=== PATIENT | male | born 1955 | race Caucasian/White ===

== ENCOUNTER 2023-11-01 09:11 | Emergency (ER) | payer OTHER, MEDICARE, SELFPAY ==
[2023-11-01 09:17] VITALS: BP 139/84
[2023-11-01 09:56] LABS: % Basophils 0.7 % (0-2); % Eosinophils 3.6 % (0-6); % Immature Granulocytes 0.5 % (0-0.5); % Lymphocytes 9.9 % (20.5-51.1); % Monocytes 8.4 % (1.7-9.3); % Neutrophils 76.9 % (42.2-75.2); Absolute Eosinophils 0.2 10^3/uL (0-0.7); Absolute Lymphocytes 0.6 10^3/uL (1.2-3.4); Absolute Monocytes 0.5 10^3/uL (0.1-0.6); Absolute Neutrophils 4.5 10^3/uL (1.4-6.5); Hemoglobin 13.8 g/dL (13.0-18.0); Mean Corp Hgb Conc. 32.9 g/dL (33.0-37.0); Mean Corpuscular Hgb 32.4 pg (27.0-31.0); Mean Corpuscular Volume 98.6 fL (80.0-94.0); Mean Platelet Volume 9.3 fL (7.4-10.4); Nucleated Red Blood Cells % 0 % (-); Platelet Count 141 10^3/uL (130-400); Red Blood Cell Count 4.26 10^6/uL (4.70-6.10); White Blood Cell Count 5.9 10^3/uL (4.8-10.8)
[2023-11-01 10:14] LABS: ALT (SGPT) 21 U/L (0-50); AST (SGOT) 29 U/L (17-59); Albumin 4.4 g/dl (3.5-5.0); Alkaline Phosphatase 82 U/L (38-126); Blood Urea Nitrogen 37 mg/dl (9-20); Calcium 8.5 mg/dl (8.4-10.2); Carbon Dioxide 30 mmol/L (22-30); Chloride 99 mmol/L (98-107); Glucose 105 mg/dl (70-99); Potassium 4.7 mmol/L (3.5-5.1); Sodium 136 mmol/L (135-145); Total Bilirubin 1.4 mg/dl (0.2-1.3); Total Protein 7.2 g/dl (6.3-8.2); eGFR > 60.00
[2023-11-01 10:19] LABS: NT-proBNP 198 pg/ml; Troponin I < 0.012 ng/ml
[2023-11-01 13:00] VITALS: BP 121/70
[2023-11-01] MEDS: DUONEB 3 ML INH (13:00)
--- NOTE | 2023-11-01 13:02 | ED.GENMED ---
History of Present Illness
General
Chief Complaint: Chest Pain
Time Seen by Provider: 11/01/23 12:28
Travel History
Have you had any contact with someone who has COVID-19?: No
Do you have any symptoms of coronavirus? Fever > 100 degrees, chills, cough, shortness of breath, sore throat, loss of taste or smell, muscle aches, or headache?: No
History of Present Illness
History of Present Illness:
68-year-old male with history of CHF, hypertension, and spinal stenosis presents to the emergency department for evaluation of shortness of breath and chest discomfort. He states he had a CT scan as an outpatient on October 21 at [facility] that
suggested potential pneumonia. He reports he has been wheezing and his albuterol inhaler is not helping. Denies any fevers or chills. He has no coughing or purulent sputum. He also notes worsening chronic back pain. Has never followed up with
the pain and artificial intelligence specialist as he was incarcerated for several years.
Past History
Past History
ED Past Medical History: COPD and HTN; Negative Hypercholesterolemia or NIDDM
ED Past Surgical History: Other (Gastric bypass)
Social History
Tobacco: Non-smoker
Alcohol: Occasional
Personal: Single (Significant other for 11 years)
Living: with family
Employment: Employed
Family History
Family History: Other (n/c)
Review of Systems
Review of Systems
Allergies reviewed?: Yes
All Other Systems: ROS reviewed and negative except as documented in HPI and ROS
Phy Exam
Physical Exam
Physical Exam:
GEN: Well appearing, NAD, WDWN
HEENT: Oral mucosa moist, no scleral icterus
Cardiac: Regular rate and rhythm, no murmurs
Lung: No respiratory distress, no tachypnea. Diffuse expiratory wheezing throughout all lung elkins
MSK: No gross deformity or injuries
Skin: Good color, no pallor or jaundice, no rashes
Neuro: AO x3, moves all extremities freely
Psych: Calm, cooperative
Scores
Heart Score for Chest Pain Patients
STEMI patient?: No
History: Slightly or Non-Suspicious
ECG: Normal
Age: >/= 65 years
Risk Factors: 1 or 2 Risk Factors
Troponin: </= Normal Limit
Heart Score for Chest Pain Patients: 3
Heart Score Risk: 2.5% MACE over next 6 weeks
Course
Orders/Labs/Results
Orders:
Orders
11/01/23 09:14
ECG [Electrocardiogram (*1)] Urgent
Reason for Study: Chest Pain
EKG- Treatment ONCE
11/01/23 09:45
Complete Blood Count/With Diff Urgent
Comprehensive Metabolic Panel Urgent
NT-proBNP Urgent
Troponin I Urgent
11/01/23 12:49
Ipratropium/Albuterol Sulfate [Duoneb] 3 ml INH R NOW STA
11/01/23 12:50
CR Chest - 2 Views Urgent
Comment:
Reason For Exam: SOB
Abnormal Lab Results
11/01/23
09:45
RBC 4.26 L 10^6/uL
(4.70-6.10)
MCV 98.6 H fL
(80.0-94.0)
MCH 32.4 H pg
(27.0-31.0)
MCHC 32.9 L g/dL
(33.0-37.0)
Absolute Lymphs (auto) 0.6 L 10^3/uL
(1.2-3.4)
Neutrophils % 76.9 H %
(42.2-75.2)
Lymphocytes % 9.9 L %
(20.5-51.1)
BUN 37 H mg/dl
(9-20)
Glucose 105 H mg/dl
(70-99)
Total Bilirubin 1.4 H mg/dl
(0.2-1.3)
11/01/23 09:45
11/01/23 09:45
Vital Signs
Initial and Last Documented VS:
Initial Vital Signs
Temp Pulse Resp BP Pulse Ox
97.7 F 69 16 139/84 99
11/01/23 09:17 11/01/23 09:17 11/01/23 09:17 11/01/23 09:17 11/01/23 09:17
Last Documented Vital Signs
Temp Pulse Resp BP Pulse Ox
97.7 F 65 19 121/70 99
11/01/23 09:17 11/01/23 13:30 11/01/23 13:30 11/01/23 13:00 11/01/23 09:17
MDM/Problems Addressed
MDM/Problems Addressed:
Patient's back pain is due to his previously diagnosed lumbar spinal stenosis and morbid obesity. He does have mild symptoms of a COPD exacerbation at this time, chest x-ray obtained today shows no evidence for infiltrate. I did review the
findings from his CT scan 10 days ago and it is not immediately clear that these findings represent infectious etiology. Will place him on a pulse dose of prednisone for the COPD exacerbation, this may provide some benefit to his lumbar spinal
stenosis pain. Outpatient pain and spine follow-up recommended
*Critical Care Note
Total Time (30-74mins, 75-104mins- exclusive of procedures): Not Applicable
ED Attending Note
-
Portions of this chart may have been created with voice recognition software.� Occasional wrong word or��sound alike� substitutions may have occurred due to the inherent limitations of voice recognition software.
Discharge Plan
Departure
Patient Disposition: Home (Routine Discharge)
Date of Disposition: 11/01/23
Time of Disposition: 14:14
Patient with high blood pressure during this ER visit?: No
Discharge Problem:
Acute exacerbation of chronic obstructive pulmonary disease, Spinal stenosis
Instructions: Exacerbation of COPD (DC)
Prescriptions:
New
prednisone 20 mg tablet
40 mg PO DAILY 7 Days Qty: 14 0RF
oxycodone 5 mg tablet
5 mg PO Q8H PRN (Reason: Pain) Qty: 8 0RF
methocarbamol 750 mg tablet
750 - 1,500 mg PO HS Qty: 14 0RF
No Action
albuterol sulfate 2.5 MG/0.5 ML solution for nebulization
2.5 mg inhalation R QIDPRN PRN (Reason: SOB)
thiamine HCl (vitamin B1) 100 MG tablet
100 mg PO DAILY
levothyroxine 150 MCG tablet
150 mcg PO DAILY
folic acid 1 MG tablet
1 mg PO DAILY
multivitamin with folic acid [Tab-A-Gisell] 1 TABLET tablet
1 tab PO DAILY
Referrals:
Emmanuel Neal DO [Non-Admitting Privileges] -
Joanna Brooke CRNP [Family Provider] -
Interventions
Interventions:
*Risk Screen - Suicide Last Done: 11/01/23 12:43
*Neglect/Abuse Screening Last Done: 11/01/23 12:43
ED- Fall Risk Assessment Last Done: 11/01/23 12:43
*ED COVID-19 Vaccine History Last Done: 11/01/23 09:17
*Nursing Disposition Last Done: 11/01/23 14:23
ED- Cardiac Assessment Last Done: 11/01/23 12:42
Discharge Date and Time
Discharge Date/Time: 11/01/23 14:25
Print Language: VIET[place]ESE
== END 2023-11-01 14:25 | disposition home or self-care (01) ==
LOC: EMR 09:11
PROVIDERS: EMERGENCY PHYSICIAN Emergency Medicine; FAMILY PHYSICIAN Registered Nurse
DX: J44.1 Chronic obstructive pulmonary disease with (acute) exacerbation (principal); M48.061 Spinal stenosis, lumbar region without neurogenic claudication; E66.01 Morbid (severe) obesity due to excess calories; I11.0 Hypertensive heart disease with heart failure; I50.9 Heart failure, unspecified; G89.29 Other chronic pain; M54.9 Dorsalgia, unspecified; Z98.84 Bariatric surgery status
CPT/HCPCS: 99283; 94640; 71046; 80053; 83880; 84484; 85025; 93005